=== PATIENT | female | born 1985 | race Caucasian/White ===

== ENCOUNTER 2017-09-15 20:41 | Emergency (ER) | payer OTHER ==
[~2017-09-15] VITALS: Ht 157.5 cm; Wt 99.6 kg
[~2017-09-15 20:41] MED LIST: ADIPEX P PO; Augmentin PO; CLEOCIN300 MG PO; CLONAZEPAM0.5 MG PO; DOXYCYCLINE HY100 M3 PO; ESCITALOPRAM OX10 MG PO; FIORICET 50-301 EACH PO; Flonase BOTH NARES; Habitrol,Nicoderm CQ TD; INDERAL60 MG PO; JUNEL FE 1.5-31 EACH PO; LYRICA100 MG PO; NAPROSYN500 MG PO; OMEPRAZOLE40 M1 PO; PROMETHAZINE HC25 M1 PO; PROPRANOLOL HCL60 MG PO; Proventil,Ventolin H IH; SUMATRIPTAN SU100 MG PO; TORADOL10 MG PO; ZOFRAN ODT4 MG PO; predniSONE PO
[2017-09-15 21:21] LABS: APPEARANCE CLEAR ((CLEAR)); BILIRUBIN NEGATIVE; BLOOD NEGATIVE; COLOR YELLOW ((YELLOW)); GLUCOSE (STRIP) NEGATIVE; KETONES NEGATIVE; LEUKOCYTES NEGATIVE; NITRITE NEGATIVE; PROTEIN (STRIP) NEGATIVE; SPECIFIC GRAVITY 1.018 (1.000-1.030); UCUL ADDED? NO
[2017-09-15 21:43] LABS: HEMATOCRIT 44.3 % (36.0-46.0); HEMOGLOBIN 15.6 G/DL (11.9-15.5); MCH 30.2 PG (29.0-34.0); MCHC 35.2 G/DL (30.0-36.0); MCV 85.9 FL (83-99); PLATELET COUNT 290 K/uL (156-360); RBC DIS.WIDTH-CV 11.9 % (11.8-14.6); RBC DIS.WIDTH-SD 37.2 % (39-53); RED BLOOD COUNT 5.16 M/uL (3.80-5.20); WHITE BLOOD COUNT 6.8 K/uL (4.1-10.2)
[2017-09-15 21:54] LABS: CHLORIDE 105 mEq/L (99-109); POTASSIUM 4.1 mEq/L (3.7-5.4); SODIUM 138 mEq/L (136-147)
[2017-09-15 21:56] LABS: GLUCOSE 121 mg/dL (70-99)
[2017-09-15 21:58] LABS: TOTAL BILIRUBIN 0.4 mg/dL (0.0-1.0)
[2017-09-15 22:00] LABS: ALKALINE PHOSPHATASE 77 IU/L (3-129); CREATININE 0.8 mg/dL (0.6-1.3); GFR ESTIMATE (CALCULATED) > 59 mL/min/
[2017-09-15 22:01] LABS: UREA NITROGEN (BUN) 10 mg/dL (9-23)
[2017-09-15 22:02] LABS: AST (GOT) 44 IU/L (2-34)
[2017-09-15 22:03] LABS: ALT (GPT) 51 IU/L (3-49); LIPASE 28 U/L (1.0-51.0)
[2017-09-15 22:09] LABS: QUANTITATIVE HCG < 4.0 MIU/ML
[2017-09-16] MEDS ORDERED: ZOFRAN ODT4 MG PO (00:05)
[2017-09-16 00:13] VITALS: BP 136/99
== END 2017-09-16 00:13 | disposition home or self-care (01) ==
LOC: EME 20:41 → EXP 20:41
DX: R10.11 Right upper quadrant pain (principal); K76.0 Fatty (change of) liver, not elsewhere classified; I10 Essential (primary) hypertension; J45.909 Unspecified asthma, uncomplicated; F31.9 Bipolar disorder, unspecified; F32.9 Major depressive disorder, single episode, unspecified; F17.200 Nicotine dependence, unspecified, uncomplicated
CPT/HCPCS: 76705; 80053; 81003; 83690; 84702; 85027; 99281; 99284

== ENCOUNTER 2017-09-19 12:39 | Emergency (ER) | payer OTHER ==
[~2017-09-19] VITALS: Ht 157.5 cm; Wt 96.6 kg
[2017-09-19 15:40] LABS: HEMATOCRIT 42.5 % (36.0-46.0); MCH 30.4 PG (29.0-34.0); MCHC 35.3 G/DL (30.0-36.0); NRBC (%) 0.3 /100 WBC (0-0); PLATELET COUNT 259 K/uL (156-360); RBC DIS.WIDTH-CV 11.9 % (11.8-14.6); RBC DIS.WIDTH-SD 37.3 % (39-53); RED BLOOD COUNT 4.94 M/uL (3.80-5.20); WHITE BLOOD COUNT 6.7 K/uL (4.1-10.2)
[2017-09-19 15:44] LABS: APPEARANCE SL.HAZY ((CLEAR)); BILIRUBIN NEGATIVE; BLOOD MODERATE; COLOR YELLOW ((YELLOW)); GLUCOSE (STRIP) NEGATIVE; KETONES NEGATIVE; LEUKOCYTES TRACE; NITRITE NEGATIVE; PROTEIN (STRIP) NEGATIVE; SPECIFIC GRAVITY 1.017 (1.000-1.030); UROBILINOGEN 0.2 MG/DL (0.2-1.0)
[2017-09-19 15:46] LABS: BACTERIA RARE /HPF; EPITHELIAL CELLS 1+ /HPF; MUCUS TRACE /LPF; RED BLOOD CELLS 0-5 /HPF (0-5); UCUL ADDED? NO; WHITE BLOOD CELLS 0-5 /HPF (0-5)
[2017-09-19 15:49] LABS: CHLORIDE 108 mEq/L (99-109); POTASSIUM 4.2 mEq/L (3.7-5.4); SODIUM 139 mEq/L (136-147)
[2017-09-19 15:51] LABS: TOTAL PROTEIN 6.7 g/dL (6.4-8.3)
[2017-09-19 15:52] LABS: GLUCOSE 76 mg/dL (70-99)
[2017-09-19 15:54] LABS: TOTAL BILIRUBIN 0.6 mg/dL (0.0-1.0)
[2017-09-19 15:55] LABS: ALKALINE PHOSPHATASE 58 IU/L (3-129); CREATININE 0.7 mg/dL (0.6-1.3); GFR ESTIMATE (CALCULATED) > 59 mL/min/
[2017-09-19 15:56] LABS: UREA NITROGEN (BUN) 12 mg/dL (9-23)
[2017-09-19 15:57] LABS: AST (GOT) 57 IU/L (2-34)
[2017-09-19 15:58] LABS: ALT (GPT) 61 IU/L (3-49); LIPASE 30 U/L (1.0-51.0)
[2017-09-19 16:50] VITALS: BP 130/90
== END 2017-09-19 16:54 | disposition home or self-care (01) ==
LOC: EME 12:39
PROVIDERS: Physician Assistant Medical
DX: R10.11 Right upper quadrant pain (principal); R79.89 Other specified abnormal findings of blood chemistry; K76.0 Fatty (change of) liver, not elsewhere classified; I10 Essential (primary) hypertension; J45.909 Unspecified asthma, uncomplicated; F32.9 Major depressive disorder, single episode, unspecified; F31.9 Bipolar disorder, unspecified; F17.200 Nicotine dependence, unspecified, uncomplicated; Z88.8 Allergy status to other drugs, medicaments and biological substances
CPT/HCPCS: 76705; 80053; 81003; 83690; 84703; 85027; 99281; 99285; J2405; J3010

== ENCOUNTER → 2017-09-26 | Outpatient (CLI) | payer OTHER | END | disposition home or self-care (01) | LOC: NUC 12:15 | DX: R10.12 Left upper quadrant pain (principal) | CPT/HCPCS: 78227; A9537 ==